=== PATIENT | female | born 1935 | race Caucasian/White ===

== ENCOUNTER 2017-11-30 16:42 | Emergency (ER) | payer OTHER, BC ==
[~2017-11-30] VITALS: Ht 154.9 cm; Wt 67.1 kg
[2017-11-30] MEDS ORDERED: ESOMEPRAZOLE MA40 MG (16:51)
[2017-11-30] MEDS ORDERED: ERYTHROMYCIN250 MG (16:51)
[2017-11-30] MEDS ORDERED: ASA81 MG (16:52)
[2017-11-30] MEDS ORDERED: NORVASC5 MG (16:52)
[2017-11-30] MEDS ORDERED: TIZANIDINE HCL2 M1 (16:52)
[2017-11-30] MEDS ORDERED: RISA-BID CAPLE1 EACH (16:53)
[2017-11-30] MEDS ORDERED: SINGULAIR10 MG (16:53)
[2017-11-30] MEDS ORDERED: MELATONIN1 M1 (16:53)
[2017-11-30] MEDS ORDERED: DOCUPRENE100 MG (16:53)
[2017-11-30] MEDS ORDERED: BASAGLAR K100 UNIT/1 (16:54)
[2017-11-30] MEDS ORDERED: TOPROL XL25 M1 (16:54)
[2017-11-30] MEDS ORDERED: NOVOLOG FL100 UNIT/1 (16:54)
[2017-11-30] MEDS ORDERED: ZOLOFT50 MG (16:55)
[2017-11-30] MEDS ORDERED: TRADJENTA5 MG (16:55)
[2017-11-30] MEDS ORDERED: NEURONTIN300 MG (16:55)
[2017-11-30] MEDS ORDERED: EFFER-K 20 MEQ20 MEQ (16:55)
[2017-11-30] MEDS ORDERED: LIPITOR20 MG (16:56)
[2017-11-30] MEDS ORDERED: SEROQUEL25 MG (16:56)
[2017-11-30] MEDS ORDERED: LASIX40 MG (16:56)
[2017-11-30] MEDS ORDERED: MIRALAX17 GM (16:57)
[2017-11-30] MEDS ORDERED: LATANOPROST1 GM (16:57)
[2017-11-30] MEDS ORDERED: CARAFATE1 GM/10 ML (16:57)
[2017-11-30] MEDS ORDERED: BENADRYL25 MG (16:58)
[2017-11-30] MEDS ORDERED: NITROSTAT0.4 MG (16:58)
[2017-11-30] MEDS ORDERED: TYLENOL EXTRA500 MG (16:58)
[2017-11-30] MEDS ORDERED: MUCINEX600 MG (16:59)
[2017-11-30] MEDS ORDERED: ULTRAM50 MG (16:59)
== END 2017-11-30 22:59 | disposition home or self-care (01) ==
LOC: ER 16:42
DX: E11.65 Type 2 diabetes mellitus with hyperglycemia (principal); N39.0 Urinary tract infection, site not specified